=== PATIENT | male | born 1995 | race Caucasian/White ===

== ENCOUNTER 2024-12-05 12:27 | Emergency (ER) | payer BC, SELFPAY ==
[2024-12-05 12:34] VITALS: BP 127/64; PULSE 80; RESP 16; TEMP 36.9; O2SAT 99
--- NOTE | 2024-12-05 12:37 | ECG_ITS ---
Test Date: 2024-12-05 12:57:13 Measurements Intervals [place] Rate: 68 P: 48 [place]: 144 QRS: 65 QRSD: 118 T: 56 QT: 371 QTc: 396 Interpretive Statements SINUS RHYTHM INCOMPLETE RIGHT BUNDLE BRANCH BLOCK BORDERLINE ECG No previous ECG available for comparison Electronically Signed On 12-05-2024 13:16:16 CDT by Jalil Monique D.O.
[2024-12-05] MEDS: SODIUM CHLORIDE 0.9% IV 1,000 ML 999 ML IV CONT ×2 (12:55→12:56)
--- NOTE | 2024-12-05 12:55 | ED.GENADULT ---
HPI - General Adult General Chief complaint: Environmental Exposure Stated complaint: syncope after heat exposure Time Seen by Provider: 12/05/24 12:43 Source: patient Mode of arrival: ambulatory Limitations: no limitations History of Present Illness HPI narrative: This is a 29 year old male that presents to the ER for a syncopal episode. Reports he was working outside. He started to feel overheated. He went to sit down and passed out. Reports feeling weak, dehydrated. He did not hit his head. Denies vision changes, vomiting, chest pain, shortness of breath palpitations. Related Data Allergies Allergy/AdvReac Type Severity Reaction Status Date / Time No Known Allergies Allergy Verified 12/05/24 12:56 Review of Systems Review of Systems: All systems reviewed & are unremarkable except as noted in HPI and below PMFSH Past Medical History Medical History (Updated 12/05/24 @ 14:18 by Chiara Fair PA-C) No active medical problems Exam Narrative: GENERAL: Well-appearing, well-nourished, and in no acute distress. HEAD: Normocephalic, atraumatic. EYES: PERRLA and EOMI. ENT: Nares clear, no rhinorrhea or epistaxis. Mucous membranes moist. Oropharynx without tonsillar hypertrophy exudate or other lesions. Bilateral TMs pearly avila non-bulging NECK: Supple. No adenopathy or masses. CHEST: Clear to auscultation. No respiratory distress. No wheezes rales or rhonchi HEART: Regular rate and rhythm. No murmur heard. Normal peripheral pulses. EXTREMITIES: Normal range of motion. No edema. SKIN: Warm, dry, no rash. NEURO: No focal deficits. Alert and oriented x3. Cranial nerves 2-12 grossly intact PSYCH: Normal mood and affect Course Course Emergency Course: Patient updated on his workup. Resting comfortably. Reports feeling much better. Ambulatory with a steady gait Vital Signs Vital signs: Vital Signs Temperature 98.5 F 12/05/24 12:34 Pulse Rate 80 12/05/24 12:34 Respiratory Rate 16 12/05/24 12:34 Blood Pressure 127/64 12/05/24 12:34 Pulse Oximetry 99 12/05/24 12:34 Temperature 97.9 F 12/05/24 13:23 Pulse Rate 76 12/05/24 13:23 Respiratory Rate 16 12/05/24 13:23 Blood Pressure 124/70 12/05/24 13:23 Pulse Oximetry 100 12/05/24 13:23 Medical Decision Making MDM Narrative Medical decision making narrative: Patient presents the emergency department after being outside in the heat and passing out. He denies hitting his head. He is neurologically intact. Denies chest pain, shortness of breath. His vitals are stable. Cbc and metabolic panel without concerning findings. EKG without concerning changes, baseline troponin is negative. Urine with some evidence of dehydration, patient hydrated with 2 L of IV fluids. Patient updated on his workup. Resting comfortably. Reports feeling much better. Ambulatory with a steady gait. He is to follow up with his primary provider. He was given warnings to return to the ER Differential Diagnosis Differential Diagnosis: Dehydration, electrolyte derangement, orthostatic hypotension, arrhythmia Vital Signs Vital Signs: Vital Signs Temperature 98.5 F 12/05/24 12:34 Pulse Rate 80 12/05/24 12:34 Respiratory Rate 16 12/05/24 12:34 Blood Pressure 127/64 12/05/24 12:34 Pulse Oximetry 99 12/05/24 12:34 Temperature 97.9 F 12/05/24 13:23 Pulse Rate 76 12/05/24 13:23 Respiratory Rate 16 12/05/24 13:23 Blood Pressure 124/70 12/05/24 13:23 Pulse Oximetry 100 12/05/24 13:23 Lab Data Lab results reviewed: Yes I reviewed the patient's lab results. 12/05/24 12:54 12/05/24 12:54 Labs: Lab Results 12/05/24 12/05/24 Range/Units 12:54 13:08 WBC 7.8 (4.5-10.0) K/mm3 RBC 5.57 (4.6-6.20) M/mm3 Hgb 16.2 (14.0-18.0) g/dL Hct 46.4 (42.0-52.0) % MCV 83.3 (80-100) fl MCH 29.1 (26-34) pg MCHC 34.9 (32-36) g/dl RDW 12.2 (11.5-14.5) % Plt Count 246 (150-375) k/mm3 MPV 9.8 (7.4-10.4) fl Immature Gran % (Auto) 0.5 (0-0.5) % Neut % (Auto) 72.5 (45.5-73.1) % Lymph % (Auto) 19.3 (18.3-44.2) % [place] % (Auto) 6.8 (2.6-8.5) % Eos % (Auto) 0.5 (0-4.4) % Baso % (Auto) 0.4 (0.2-1.2) % Lymph # (Auto) 1.51 (0.9-3.2) K/mm3 [place] # (Auto) 0.5 (0.1-0.6) K/mm3 Eos # (Auto) 0.0 (0-0.3) K/mm3 Baso # (Auto) 0.0 (0.0-0.1) K/mm3 Abs Immat Gran (auto) 0.04 H (0.00-0.031) K/mm3 Absolute Neuts (auto) 5.7 (1.3-6.7) K/mm3 Absolute Nucleated RBC 0.000 (0.0-0.012) K/mm3 Nucleated RBC % 0.0 (0.0-0.2) % Sodium 139 (137-145) mmol/L Potassium 4.4 (3.4-5.0) mmol/L Chloride 101 (98-107) mmol/L Carbon Dioxide 26 (22-30) mmol/L Anion Gap 12 (4-12) mmol/L BUN 15 (9-20) mg/dL Creatinine 1.16 (0.7-1.3) mg/dL Estim Creat Clear Calc 112 ml/min Estimated GFR > 60 (59 - ) Glucose 99 (65-110) mg/dL Calcium 10.0 (8.4-10.2) mg/dL Total Bilirubin 1.4 H (0.2-1.3) mg/dL AST 32 (17-59) U/L ALT 21 (6-50) U/L Alkaline Phosphatase 67 (38-126) U/L Total Creatine Kinase 234 H (55-170) U/L Troponin I < 0.012 (0.000-0.034) ng/mL Total Protein 7.9 (6.3-8.2) g/dL Albumin 5.0 (3.5-5.1) g/dL Urine Color Dark yellow (Yellow) Urine Appearance Clear (Clear) Urine pH 7.0 (5.0-9.0) Ur Specific [place] 1.029 (1.001-1.035) Urine Protein 1+ H (Negative) mg/dL Urine Glucose (UA) Negative (Negative) mg/dL Urine Ketones Trace H (Negative) mg/dL Ur Blood (Man) Negative (Negative) Urine Nitrate Negative (Negative) Urine Bilirubin 1+ H (Negative) Urine Urobilinogen 1.0 (<2.0) mg/dL Add Ur Microanalysis Reviewed Leukocyte Esterase Rfl Trace H (Negative) [place]AM[place]/UL Urine RBC 0-2 (0-2) /hpf Urine WBC 0-5 (0-3) /hpf Ur Squamous Epith Cells None seen (Few) /hpf Urine Bacteria None seen /hpf Urine Casts 6-10 Hyaline Casts Present (None) /lpf ECG Data EKG #1: ECG completion date: 12/05/24 EKG Interpretation: normal rate, sinus rhythm, RBBB (incomplete) and normal QT Critical Care Time Critical Care Time Critical Care Time: No Discharge Plan Discharge Clinical Impression: Dehydration Syncope Qualifiers: Syncope type: unspecified Qualified Code(s): R55 - Syncope and collapse Patient Disposition: Home Condition: Stable Instructions: Dehydration (ED), Syncope (ED) Additional Instructions: Return to the emergency department if you experience fever, chest pain, shortness of breath, abdominal pain with nausea and vomiting, weakness, numbness, or any other symptoms that are concerning to you. Rest. Remain well hydrated Follow up with your primary care doctor Patient Language: [place] Follow-up/Referrals: UNKNOWN,DOCTOR [Non-Staff] -
[2024-12-05 13:06] LABS: Basophils Percent Auto 0.4 % (0.2-1.2); Eosinophils Percent Auto 0.5 % (0-4.4); Hematocrit 46.4 % (42.0-52.0); Hemoglobin 16.2 g/dL (14.0-18.0); Immature Granulocyte Absolute 0.04 K/mm3 (0.00-0.031); Immature Granulocyte Percent A 0.5 % (0-0.5); Lymphocytes Absolute Auto 1.51 K/mm3 (0.9-3.2); Lymphocytes Percent Auto 19.3 % (18.3-44.2); Mean Corpuscular HGB Conc 34.9 g/dl (32-36); Mean Corpuscular Hemoglobin 29.1 pg (26-34); Mean Corpuscular Volume 83.3 fl (80-100); Mean Platelet Volume 9.8 fl (7.4-10.4); Monocytes Absolute Auto 0.5 K/mm3 (0.1-0.6); Monocytes Percent Auto 6.8 % (2.6-8.5); Neutrophils Absolute Auto 5.7 K/mm3 (1.3-6.7); Neutrophils Percent Auto 72.5 % (45.5-73.1); Platelet Count Result 246 k/mm3 (150-375); Red Blood Count 5.57 M/mm3 (4.6-6.20); Red Cell Distribution Width 12.2 % (11.5-14.5); White Blood Count 7.8 K/mm3 (4.5-10.0)
[2024-12-05 13:21] LABS: Alanine Aminotransferase 21 U/L (6-50); Alkaline Phosphatase 67 U/L (38-126); Anion Gap 12 mmol/L (4-12); Aspartate Amino Transferase 32 U/L (17-59); Bilirubin,Total 1.4 mg/dL (0.2-1.3); Blood Urea Nitrogen 15 mg/dL (9-20); Carbon Dioxide 26 mmol/L (22-30); Chloride 101 mmol/L (98-107); Estimated CRCL calculation 112 ml/min; Estimated Glomerular Filt Rate > 60; Glucose 99 mg/dL (65-110); Potassium 4.4 mmol/L (3.4-5.0); Sodium 139 mmol/L (137-145); Total Protein 7.9 g/dL (6.3-8.2)
[2024-12-05 13:23] VITALS: BP 124/70; PULSE 76; RESP 16; TEMP 36.6; O2SAT 100
[2024-12-05 13:33] LABS: Troponin I < 0.012 ng/mL (0.000-0.034)
[2024-12-05 13:38] LABS: Add Urine Microscopic? YES; Appearance Urine Clear (Clear); Bacteria Urine None Seen /hpf; Bilirubin Urine 1+ (Negative); Blood Urine Negative (Negative); Color Urine Dark Yellow (Yellow); Glucose Urine UA Negative (Negative); Hyaline Casts Urine Present /lpf; Ketones Urine Trace mg/dL (Negative); Leukocyte Esterase Ur Trace LEU/UL (Negative); Need Manual Microscopic Reviewed; Nitrate Urine Negative (Negative); Protein Urine 1+ mg/dL (Negative); RBC Urine 0-2 /hpf (0-2); Specific Grav Ur 1.029 (1.001-1.035); Squamous Epithelial Cell Urine None Seen /hpf (Few); WBC Urine 0-5 /hpf (0-3)
[2024-12-05 13:38] LABS: Creatine Kinase 234 U/L (55-170)
[2024-12-05 14:27] VITALS: BP 118/68; PULSE 70; RESP 16; TEMP 36.5; O2SAT 100
== END 2024-12-05 14:30 | disposition home or self-care (01) ==
PROVIDERS: Emergency Medicine; Emergency Provider Physician Assistant; PCP Physician Assistant
DX: E86.0 Dehydration (principal); R55 Syncope and collapse
CPT/HCPCS: 36415; 80053; 81001; 82550; 84484; 85025; 93005; 96360; 99284; J7030